=== PATIENT | female | born 1970 | race Caucasian/White ===

== ENCOUNTER → 2019-06-23 10:45 | Outpatient (BNVA) | payer MEDICARE, SELFPAY | PROVIDERS: Family Provider Family Medicine; PCP Family Medicine; Visit Provider Family Medicine | DX: I10 Essential (primary) hypertension (principal); E87.6 Hypokalemia; F41.1 Generalized anxiety disorder; K21.9 Gastro-esophageal reflux disease without esophagitis; E78.5 Hyperlipidemia, unspecified; K58.9 Irritable bowel syndrome, unspecified; E11.65 Type 2 diabetes mellitus with hyperglycemia; K58.0 Irritable bowel syndrome with diarrhea; R25.2 Cramp and spasm; E78.2 Mixed hyperlipidemia; J02.9 Acute pharyngitis, unspecified | CPT/HCPCS: 80053; 80061; 83036; 83735 ==

== ENCOUNTER → 2019-09-22 09:03 | Outpatient (BNVA) | payer MEDICARE, SELFPAY | PROVIDERS: Family Provider Family Medicine; PCP Family Medicine; Visit Provider Family Medicine | DX: E11.65 Type 2 diabetes mellitus with hyperglycemia (principal); E11.9 Type 2 diabetes mellitus without complications; F41.1 Generalized anxiety disorder; M17.12 Unilateral primary osteoarthritis, left knee; I10 Essential (primary) hypertension; E87.6 Hypokalemia; K21.9 Gastro-esophageal reflux disease without esophagitis | CPT/HCPCS: 80048; 83036 ==

== ENCOUNTER → 2020-04-27 11:39 | Outpatient (BNVA) | payer MEDICARE, SELFPAY | PROVIDERS: Family Provider Family Medicine; PCP Family Medicine; Visit Provider Nurse Practitioner Family | DX: M79.675 Pain in left toe(s) (principal) | CPT/HCPCS: 73660 ==

== ENCOUNTER → 2020-05-13 09:31 | Outpatient (BNVA) | payer MEDICARE, SELFPAY | PROVIDERS: Family Provider Family Medicine; PCP Family Medicine; Visit Provider Emergency Medicine | DX: Z20.828 Contact with and (suspected) exposure to other viral communicable diseases (principal); J02.9 Acute pharyngitis, unspecified; R11.0 Nausea | CPT/HCPCS: 87635; 87880 ==

== ENCOUNTER 2020-07-11 14:35 | Emergency (ER) | payer MEDICARE, SELFPAY ==
[2020-07-11 15:17] VITALS: BP 174/114; PULSE 90; RESP 18; TEMP 37.2; O2SAT 96; BMI 50.5
--- NOTE | 2020-07-11 15:23 | W.ED.BACK ---
HPI - Back Pain/Injury General: Chief Complaint: Back Pain/Injury Stated Complaint: back pain Time Seen by Provider: 07/11/20 14:45 Source: patient Mode of arrival: ambulatory Limitations: no limitations History of Present Illness: HPI Narrative: Patient is a 50-year-old female who presents to ED today with a complaint of midline and right lower back pain. Patient tells me she has a history of degenerative disc disease. She often has pain in her lower back and into her right hip. Patient tells me she is usually able to treat this conservatively at home. She states several days ago she had to make a trip to [place] to take her son for medical evaluation. Because of COVID they did not allow visitors and patient states she had to sit in her car for several hours while waiting on him. Patient states since then she has had worsening of her pain. She has been trying 800 mg ibuprofen without relief. MD elicited complaint: back pain Pertinent past history: prior back pain Onset (ago): day(s) Timing: constant Severity: severe Similar Symptoms Previously: Yes Quality: sharp and stabbing Location: lumbar spine and right lower back Radiation: right upper leg Exacerbating factors: movement and walking Relieving factors: none Associated symptoms: Reports no associated symptoms; Deny abdominal pain, dysuria or fever(s) Treatments prior to arrival: NSAIDS (800mg ibuprofen) Work related injury: No Review of Systems Const: Denies: fever(s) Card: Denies: chest pain Resp: Denies: dyspnea GI: Denies: abdominal pain : Denies: flank pain or dysuria Musc: Reports: back pain and joint pain (R hip); Denies: neck pain, extremity pain, extremity swelling or joint swelling Neuro: Denies: numbness in extremities or sensory changes PFS ED PFSH: Medical History (Updated 07/11/20 @ 15:35 by BASIL Mcclellan) CHF (congestive heart failure) Depression TOM (generalized anxiety disorder) Hydroxyzine make her sleepy. GERD (gastroesophageal reflux disease) HTN (hypertension) Hyperlipidemia Hypokalemia Irritable bowel syndrome Nicotine dependence Seasonal allergies Sleep apnea Type 2 diabetes mellitus Surgical History S/P carpal tunnel release Left S/P cholecystectomy S/P hernia repair S/P hysterectomy S/P knee replacement Total left knee replacement Family History Mother Diabetes Heart disease Family/Other Diabetes Maternal Uncle Heart disease Maternal Grandmother Social History Smoking and tobacco status: former smoker Quit status (tobacco): has quit using tobacco Second hand smoke exposure: Yes Alcohol intake: never Desire information about alcohol rehabilitation?: No Desire information about substance/drug rehabilitation?: No History of recent travel: No Female Reproductive History: Spontaneous abortions: No Physical Exam Const: COMMON NORMALS: no acute distress, patient oriented x3, no limitations and alert GENERAL APPEARANCE: cooperative NUTRITIONAL APPEARANCE: obese morbidly obese (BMI >50) ORIENTATION/CONSCIOUSNESS: Yes awake, Yes oriented to person, Yes oriented to place and Yes oriented to time Back/Pelvis: THORACIC SPINE/UPPER BACK: Yes normal to inspection and Yes thoracic ROM normal LUMBAR SPINE/LOWER BACK: Yes lumbar spinal tenderness (lower lumbar ), No paraspinal muscle spasm and Yes straight leg raise positive right PELVIS: Yes no pain with anterior-posterior compression and Yes tenderness over symphysis pubis Extremity: GENERAL: Yes normal exam except as noted Neuro: COMMON NORMALS: patient oriented x3, moves all extremities, no focal motor deficits, no sensory deficits noted and gait normal SENSORIUM/ORIENTATION: Yes alert, Yes oriented to person, Yes oriented to place and Yes oriented to time Skin: COMMON NORMALS: no rashes or lesions noted GENERAL SKIN EXAM: no rashes or lesions noted Course Vital Signs: Vital signs: Vital Signs Temperature 99.0 F 07/11/20 15:17 Pulse Rate 90 07/11/20 15:17 Respiratory Rate 18 07/11/20 15:17 Blood Pressure 174/114 07/11/20 15:17 Pulse Oximetry 96 07/11/20 15:17 MDM - Back Pain/Injury MDM Narrative: Medical decision making narrative: Patient here with acute on chronic lower back and hip pain. Patient reports previously being treated with dexamethasone and states it caused unwanted side effects in regards to severe hyperglycemia. She states she has taken prednisone tapers previously and did okay. Recommend she continue taking the ibuprofen. She is requesting a very small amount of stronger pain medications that she may take for severe pain. She states she has an upcoming appointment with primary care for further management. Discharge Plan Discharge Patient Disposition: Home Clinical Impression: Acute exacerbation of chronic low back pain Degenerative disc disease Qualifiers: Spinal region: lumbosacral Qualified Code(s): M51.37 - Other intervertebral disc degeneration, lumbosacral region Condition: Stable Prescriptions: New prednisone 10 mg tablet 10 mg PO DAILY 6 Days Qty: 20 RF: 0 hydrocodone-acetaminophen 5-325 mg tablet 1 tab PO Q6H PRN (Reason: pain) Qty: 4 RF: 0 Discontinued dexamethasone 2 mg tablet 10 mg PO DAILY 1 Days Qty: 5 RF: 0 No Action turmeric root extract 500 mg capsule 500 mg PO DAILY RF: 0 losartan 100 mg tablet 100 mg PO DAILY 30 Days Qty: 30 RF: 5 chlorthalidone 50 mg tablet 50 mg PO DAILY 30 Days Qty: 30 RF: 5 metoprolol succinate 25 mg tablet extended release 24 hr 25 mg PO DAILY 30 Days Qty: 30 RF: 5 metformin 1,000 mg tablet 1,000 mg PO BID 30 Days Qty: 60 RF: 5 fluoxetine 20 mg capsule 20 mg PO DAILY 30 Days Qty: 30 RF: 5 famotidine 40 mg tablet 40 mg PO BID 30 Days Qty: 60 RF: 5 atorvastatin 40 mg tablet 40 mg PO DAILY 30 Days Qty: 30 RF: 5 tizanidine 2 mg tablet See Rx Instructions PO BID MDD 4 PRN (Reason: muscle spasticity) 30 Days Qty: 60 RF: 1 dicyclomine 10 mg capsule 10 mg PO TID 30 Days Qty: 90 RF: 5 buspirone 5 mg tablet 5 mg PO TID PRN (Reason: anxiety) 30 Days Qty: 90 RF: 1 albuterol sulfate 2.5 mg /3 mL (0.083 %) solution for nebulization 2.5 mg INHALATION Q6H Qty: 150 RF: 0 fluticasone propionate 50 mcg/actuation spray,suspension 1 spray INTRANASAL Q12H Qty: 50 RF: 1 ibuprofen 800 mg tablet 800 mg PO BID PRN (Reason: pain) Qty: 60 RF: 5 acetaminophen-codeine 300-30 mg tablet 1 tab PO Q6H PRN (Reason: pain) Qty: 20 RF: 0 (DME) DME: [facility] See Rx Instructions .ROUTE .MEDSUPPLY Qty: 1 RF: 0 azithromycin 250 mg tablet See Rx Instructions PO .COMPLEX Qty: 6 RF: 0 albuterol sulfate 90 mcg/actuation HFA aerosol inhaler 2 puff inhalation Q6H PRN (Reason: shortness of breath or wheezing) Qty: 8.5 RF: 0 [id number] [Bromfed DM] 2-30-10 mg/5 mL syrup 7.5 ml PO Q6H PRN (Reason: cold symptoms) Qty: 160 RF: 0 ondansetron 4 mg tablet,disintegrating 4 mg PO Q6H PRN (Reason: nausea and vomiting) Qty: 12 RF: 0 potassium chloride [Klor-Con 10] 10 mEq tablet extended release 10 meq PO BID 30 Days Qty: 60 RF: 2 canagliflozin 300 mg tablet 300 mg PO DAILY 30 Days Qty: 30 RF: 5 triamcinolone acetonide 0.025 % ointment 1 applic TOPICAL DAILY Qty: 15 RF: 2 loratadine [Allergy Relief (loratadine)] 10 mg tablet See Rx Instructions .ROUTE .COMPLEX Qty: 30 RF: 1 (DME) Blood Glucose Test Strip See Rx Instructions .ROUTE .MEDSUPPLY Qty: 100 RF: 12 albuterol sulfate 90 mcg/actuation HFA aerosol inhaler 2 puff INHALATION Q6H PRN (Reason: shortness of breath or wheezing) Qty: 8.5 RF: 1 Discharge Orders: Discharge ED (Routine); Ordered 07/11/20 Ordered By: Ondina Pickett Referrals: Abi Carrington MD [Primary Care Provider] - Patient Instructions: Opioid Safety Activity Restrictions/Additional Instructions: [facility] is committed to fighting the nationwide opiate epidemic. We are providing ALL patients with information regarding opiate safety. If you received opiate pain medication during your stay or if you received a prescription for opiate pain medication-please review this handout. If not, you may disregard. Thank you. Coding Level of Care Code ED Architecture Consultant for Jim Freeman
[2020-07-11 15:46] VITALS: PULSE 87; RESP 18; O2SAT 97
== END 2020-07-11 15:47 | disposition home or self-care (01) ==
PROVIDERS: Emergency Provider Physician Assistant; PCP Family Medicine
DX: G89.29 Other chronic pain (principal); M54.5 Low back pain; M51.37 Other intervertebral disc degeneration, lumbosacral region; I11.0 Hypertensive heart disease with heart failure; I50.9 Heart failure, unspecified; E78.5 Hyperlipidemia, unspecified; E11.9 Type 2 diabetes mellitus without complications; Z87.891 Personal history of nicotine dependence
CPT/HCPCS: 99282

== ENCOUNTER → 2021-05-02 09:31 | Outpatient (BNVA) | payer MEDICARE, SELFPAY | PROVIDERS: PCP Family Medicine; Visit Provider Nurse Practitioner Family | DX: Z20.822 Contact with and (suspected) exposure to COVID-19 (principal) | CPT/HCPCS: 87635 ==

== ENCOUNTER → 2021-11-02 09:19 | Outpatient (BNVA) | payer MEDICARE, SELFPAY | PROVIDERS: PCP Family Medicine; Visit Provider Emergency Medicine | DX: R68.89 Other general symptoms and signs (principal); J98.8 Other specified respiratory disorders; B97.89 Other viral agents as the cause of diseases classified elsewhere; Z20.822 Contact with and (suspected) exposure to COVID-19 | CPT/HCPCS: 87635 ==

== ENCOUNTER → 2022-09-01 11:00 | Outpatient (BNVA) | payer MEDICARE, SELFPAY | PROVIDERS: Visit Provider Podiatrist Foot & Ankle Surgery | DX: E11.65 Type 2 diabetes mellitus with hyperglycemia (principal); G62.9 Polyneuropathy, unspecified; M54.16 Radiculopathy, lumbar region; M20.11 Hallux valgus (acquired), right foot; E11.42 Type 2 diabetes mellitus with diabetic polyneuropathy; Z79.84 Long term (current) use of oral hypoglycemic drugs; Z79.4 Long term (current) use of insulin | CPT/HCPCS: 99204 ==

== ENCOUNTER → 2022-09-07 15:34 | Outpatient (BNVA) | payer MEDICARE, SELFPAY | PROVIDERS: Visit Provider Physician Assistant | DX: M54.50 Low back pain, unspecified (principal); M54.16 Radiculopathy, lumbar region; G89.29 Other chronic pain; E66.01 Morbid (severe) obesity due to excess calories | CPT/HCPCS: 72110; 99204 ==

== ENCOUNTER 2022-09-14 06:00 | Outpatient (RCR) | payer MEDICARE, SELFPAY | END 2022-10-13 23:59 | disposition home or self-care (01) | LOC: MPT 06:00 | PROVIDERS: Visit Provider Physician Assistant | DX: M54.50 Low back pain, unspecified (principal) | CPT/HCPCS: 97110; 97140; 97162; G0283 ==

== ENCOUNTER 2022-10-14 06:00 | Outpatient (RCR) | payer MEDICARE, SELFPAY | END 2022-11-13 23:59 | disposition home or self-care (01) | LOC: MPT 06:00 | PROVIDERS: Visit Provider Physician Assistant | DX: M54.50 Low back pain, unspecified (principal) | CPT/HCPCS: 97110; 97140; G0283 ==

== ENCOUNTER → 2022-10-19 13:40 | Outpatient (BNVA) | payer MEDICARE, SELFPAY | PROVIDERS: Visit Provider Physician Assistant | DX: E66.01 Morbid (severe) obesity due to excess calories (principal); M54.50 Low back pain, unspecified; G89.29 Other chronic pain; M54.16 Radiculopathy, lumbar region | CPT/HCPCS: 99213 ==

== ENCOUNTER 2022-11-01 07:39 | Outpatient (CLI) | payer MEDICARE, SELFPAY ==
--- NOTE | 2022-11-01 08:00 | MR_ITS ---
WS: [id number] MRI LUMBAR SPINE NONCONTRAST TECHNIQUE: Sagittal T1, T2 and STIR imaging. Axial T1 and T2 imaging. CLINICAL INFORMATION: pain COMPARISON: None. FINDINGS: Mild lumbar curve. No acute compression. Mild annular bulging L3-L4 with small annular fissure. L1-L2: Mild facet arthropathy. Spinal canal and foramen are patent. L2-L3: Mild LEFT and no significant RIGHT foraminal narrowing. Moderate facet arthropathy. L3-L4: Mild annular bulging with a small annular fissure. Slight effacement of ventral thecal sac. Sl ight narrowing of the subarticular recess. Spinal canal and foramen are patent. Moderate facet arthro vale. L4-L5: Mild annular bulging with narrowing of the LEFT greater than RIGHT subarticular recess. Slight effacement of ventral thecal sac. Spinal canal and foramen are patent. Mild to moderate facet arthro vale. L5-S1: No significant disc bulging. Moderate facet arthropathy. Spinal canal and foramen are patent. Visualized pelvic bony structures: Normal. Paravertebral soft tissues: Normal. MR/MR lumbar spine wo con* [id number] IMPRESSION: 1. Mild lumbar curve. No acute compression. No high-grade central canal stenos is. 2. Mild annular bulging L3-L4 with small annular fissure. Slight narrowing of the subarticular recess bilaterally. 3. Mild annular bulging L4-L5 with slight effacement of ventral thecal sac. 4. Moderate facet arthropathy L2-L3 L3-L4 and L4-L5.
== END 2022-11-01 07:40 | disposition home or self-care (01) ==
PROVIDERS: Visit Provider Physician Assistant
DX: G89.29 Other chronic pain (principal); M54.50 Low back pain, unspecified
CPT/HCPCS: 72148

== ENCOUNTER 2022-11-05 16:59 | Emergency (ER) | payer MEDICARE, SELFPAY ==
--- NOTE | 2022-11-05 18:02 | XRR_ITS ---
PROCEDURE INFORMATION: Exam: XR Left Shoulder Exam date and time: 11/05/2022 6:20 PM Age: 52 years old Clinical indication: Pain; Shoulder; Left; Additional info: Pain, no trauma TECHNIQUE: Imaging protocol: Radiologic exam of the left shoulder. Views: 2 or more views. COMPARISON: No relevant prior studies available. FINDINGS: Bones/joints: Mild left acromioclavicular arthropathy. Soft tissues: Normal. XR/XR shoulder LT min 2V* [id number] IMPRESSION: Mild left acromioclavicular arthropathy.
[2022-11-05 18:34] VITALS: BP 146/72; PULSE 104; RESP 16; TEMP 37.1; O2SAT 95; BMI 50.2
[2022-11-05 19:29] VITALS: PULSE 68
--- NOTE | 2022-11-05 19:39 | W.ED.EXTPRO ---
HPI - Extremity Problem General: Chief complaint: Extremity Injury, Upper Stated complaint: Lft Shoulder Pain Time Seen by Provider: 11/05/22 19:20 Source: patient Mode of arrival: ambulatory Limitations: no limitations History of Present Illness: 52-year-old female states been left shoulder pain for months. States over the last week it is worsened states much worse with palpation and movement of the arm. She states she has seen orthopedist for this before who recommended physical therapy she denies any recent injuries. Rates her pain a 6 out of 10 currently Associated symptoms: Deny chest pain, fever(s) or rash Review of Systems Const: Denies: fever(s), chills, body aches or change in appetite ENMT: Denies: throat pain or dental pain Card: Denies: chest pain Resp: Denies: dyspnea GI: Denies: abdominal pain Musc: Reports: extremity pain; Denies: neck pain or back pain Skin/Breast: Denies: rash Neuro: Denies: headache(s) PFSH ED PFSH: Medical History CHF (congestive heart failure) Depression TOM (generalized anxiety disorder) Hydroxyzine make her sleepy. GERD (gastroesophageal reflux disease) HTN (hypertension) Hyperlipidemia Hypokalemia Irritable bowel syndrome Nicotine dependence Seasonal allergies Sleep apnea Type 2 diabetes mellitus Surgical History S/P carpal tunnel release Left S/P cholecystectomy S/P hernia repair S/P hysterectomy S/P knee replacement Total left knee replacement Family History Mother Diabetes Heart disease Family/Other Diabetes Maternal Uncle Heart disease Maternal Grandmother Social History Smoking and tobacco status: former smoker Quit status (tobacco): has quit using tobacco Second hand smoke exposure: Yes Alcohol intake: never Desire information about alcohol rehabilitation?: No Substance/Drug Use: never Desire information about substance/drug rehabilitation?: No Female Reproductive History: Spontaneous abortions: No Physical Exam Const: COMMON NORMALS: no acute distress, average body habitus and patient oriented x3 HENMT: COMMON NORMALS: normocephalic and atraumatic HEAD & SCALP: normocephalic and atraumatic Eye: COMMON NORMALS: conjunctivae normal CONJUNCTIVA: Yes conjunctivae normal Neck/C-Spine: COMMON NORMALS: supple Chest: COMMONS NORMALS: normal inspection of the chest Resp: COMMON NORMALS: normal respiratory effort Extremity: NARRATIVE EXTREMITY EXAM: Pain with range of motion to left shoulder distal pulses sensation intact Neuro: COMMON NORMALS: patient oriented x3 Psych: COMMON NORMALS: mental status grossly normal Skin: COMMON NORMALS: no rashes or lesions noted GENERAL SKIN EXAM: no rashes or lesions noted Course Vital Signs: Vital signs: Vital Signs Temperature 98.8 F 11/05/22 18:34 Pulse Rate 68 11/05/22 19:29 Respiratory Rate 16 11/05/22 18:34 Blood Pressure 146/72 11/05/22 18:34 Pulse Oximetry 95 11/05/22 18:34 Oxygen Delivery Me thod Room Air 11/05/22 18:34 MDM - Extremity (Nontraumatic) Medical Decision Making Patient presents with left shoulder pains been going on for months her x-ray here is normal she is to follow-up with orthopedics she states that she is actually seen Dr. Escobedo for this he and he is going to try step with PT she is stable for discharge at this time Medical Records I reviewed the patient's medical records. Lab Data Radiology Impressions Shoulder X-Ray 11/05/22 18:02 IMPRESSION: Mild left acromioclavicular arthropathy. Discharge Plan Discharge Patient Disposition: Home Clinical Impression: Chronic left shoulder pain Condition: Stable Prescriptions: New Naprosyn 500 mg tablet 500 mg PO BID PRN (Reason: pain) Qty: 20 0RF No Action losartan 100 mg tablet 100 mg PO DAILY 30 Days Qty: 30 5RF chlorthalidone 50 mg tablet 50 mg PO DAILY 30 Days Qty: 30 5RF metoprolol succinate 25 mg tablet extended release 24 hr 25 mg PO DAILY 30 Days Qty: 30 5RF fluoxetine 20 mg capsule 20 mg PO DAILY 30 Days Qty: 30 5RF famotidine 40 mg tablet 40 mg PO BID 30 Days Qty: 60 5RF dicyclomine 10 mg capsule 10 mg PO TID 30 Days Qty: 90 5RF buspirone 5 mg tablet 5 mg PO TID PRN (Reason: anxiety) 30 Days Qty: 90 1RF methocarbamol 750 mg tablet 750 mg PO TID 5 Days Qty: 15 0RF meloxicam 15 mg tablet 15 mg PO DAILY Lantus Solostar U-100 Insulin 100 unit/mL (3 mL) insulin pen 45 unit SUBCUT DAILY Iron 100 Plus [id number] lo-ir-wtv-mg tablet 1 tab PO DAILY ketoconazole 2 % shampoo 1 applic topical Q14D metronidazole 0.75 % gel 1 applic topical DAILY alpha lipoic acid 50 mg capsule 50 mg PO DAILY Ozempic 1 mg/dose (2 mg/1.5 mL) pen injector SUBCUT .weekly albuterol sulfate 90 mcg/actuation HFA aerosol inhaler 2 puff inhalation Q6H PRN (Reason: shortness of breath or wheezing) Qty: 8.5 0RF [id number] [Bromfed DM] 2-30-10 mg/5 mL syrup 7.5 ml PO Q6H PRN (Reason: cold symptoms) Qty: 160 0RF doxycycline hyclate 100 mg tablet 100 mg PO BID 7 Days Qty: 14 0RF potassium chloride [Klor-Con 10] 10 mEq tablet extended release 10 meq PO BID 30 Days Qty: 60 2RF Rx Instructions: dose increase loratadine [Allergy Relief (loratadine)] 10 mg tablet See Rx Instructions .ROUTE .COMPLEX Qty: 30 1RF Dose Instruction: TAKE ONE TABLET BY MOUTH DAILY AT BEDTIME Rx Instructions: TAKE ONE TABLET BY MOUTH DAILY AT BEDTIME (DME) Blood Glucose Test Strip See Rx Instructions .ROUTE .MEDSUPPLY Qty: 100 12RF Rx Instructions: As directed; one blood glucose test strip one time daily metformin 1,000 mg tablet 1,000 mg PO BID 30 Days Qty: 60 0RF diazepam [Valium] 5 mg tablet 5 mg PO ONCE 1 Days Qty: 1 0RF Discharge Orders: Discharge ED (Routine); Ordered 11/05/22 Ordered By: Michel Callahan Referrals: Shane Escobedo DO [Physician] - 1-3 days Discharge Diet: Advance as tolerated Discharge Activity: Resume usual activity Patient Instructions: Shoulder Pain (ED) Coding Level of Care Code ED Special Needs Child Caregiver for Jim Freeman
[2022-11-05] MEDS: HYDROcodone-acetaminophen 5-325 mg Tablet 1 TAB PO (19:47)
[2022-11-05 19:48] VITALS: BP 130/81; PULSE 98; RESP 18; O2SAT 95
--- NOTE | 2022-11-08 09:29 | DCPLANNER ---
mission manager called patient due to no primary care physician - no answer at this time.
== END 2022-11-05 19:49 | disposition home or self-care (01) ==
PROVIDERS: Emergency Provider Emergency Medicine
DX: G89.29 Other chronic pain (principal); M25.512 Pain in left shoulder; Z79.4 Long term (current) use of insulin; Z79.84 Long term (current) use of oral hypoglycemic drugs; Z87.891 Personal history of nicotine dependence; I11.0 Hypertensive heart disease with heart failure; I50.9 Heart failure, unspecified; E78.5 Hyperlipidemia, unspecified; E11.9 Type 2 diabetes mellitus without complications
CPT/HCPCS: 73030; 99283

== ENCOUNTER → 2022-11-10 12:10 | Outpatient (BNVA) | payer MEDICARE, SELFPAY | PROVIDERS: Visit Provider Emergency Medicine | DX: J02.0 Streptococcal pharyngitis (principal) | CPT/HCPCS: 87880 ==

== ENCOUNTER 2022-11-20 06:00 | Outpatient (RCR) | payer MEDICARE, SELFPAY | END 2022-12-14 23:59 | disposition home or self-care (01) | LOC: MPT 06:00 | PROVIDERS: Visit Provider Nurse Practitioner Family | DX: M25.512 Pain in left shoulder (principal) | CPT/HCPCS: 97110; 97140; 97162; G0283 ==

== ENCOUNTER → 2022-11-28 10:48 | Outpatient (BNVA) | payer MEDICARE, SELFPAY | PROVIDERS: Visit Provider Physician Assistant | DX: E66.01 Morbid (severe) obesity due to excess calories (principal); M47.816 Spondylosis without myelopathy or radiculopathy, lumbar region; Z68.43 Body mass index [BMI] 50.0-59.9, adult | CPT/HCPCS: 99214 ==

== ENCOUNTER 2023-09-28 16:03 | Emergency (ER) | payer MEDICARE, SELFPAY ==
[2023-09-28 16:35] VITALS: BP 154/83; PULSE 90; RESP 18; TEMP 36.8; O2SAT 97; BMI 55.9
--- NOTE | 2023-09-28 17:33 | XRR_ITS ---
PROCEDURE INFORMATION: Exam: XR Right Knee Exam date and time: 09/28/2023 6:01 PM Age: 53 years old Clinical indication: Injury or trauma; Fall; Sprain or strain; Patella or knee; Right; Patient HX: RT medial knee pain post twisting injury TECHNIQUE: Imaging protocol: Radiologic exam of the right knee. Views: 3 views. COMPARISON: CR XR foot RT min 3V* [id number] 10/19/2018 9:17 PM FINDINGS: Bones/joints: No acute fracture or dislocation. Tiny medial are compartment osteophytes. No joint effusion. Soft tissues: Unremarkable. XR/XR knee RT 3V* [id number] IMPRESSION: No acute fracture or dislocation.
[2023-09-28 17:34] VITALS: BP 162/85; PULSE 88; TEMP 36.9; O2SAT 96
--- NOTE | 2023-09-28 18:38 | ED_ITS ---
HPI - Extremity Problem General: Chief complaint: Extremity Problem,Nontraumatic Stated complaint: right knee pain Time Seen by Provider: 09/28/23 17:47 History of Present Illness: 53-year-old female with a history of mor bid obesity type 2 diabetes mellitus anxiety, hypertension, GERD and depression who presents to the emergency room with right knee pain. She said she was lifting or twisting and felt a pop in her knee and she has had pain since. She has quite a bit of swelling in her knee. There is been some bruising on the medial side. She is neurovascularly intact. Review of Systems Narrative: Constitutional symptoms: Negative except as documented in HPI. Skin symptoms: Negative except as documented in HPI. Eye symptoms: Negative except as documented in HPI. ENMT symptoms: Negative except as documented in HPI. Respiratory symptoms: Negative except as documented in HPI. Cardiovascular symptoms: Negative except as documented in HPI. Gastrointestinal symptoms: Negative except as documented in HPI. Genitourinary symptoms: Negative except as documented in HPI. Musculoskeletal symptoms: Negative except as documented in HPI. Neurologic symptoms: Negative except as documented in HPI. Psychiatric symptoms: Negative except as documented in HPI. Endocrine symptoms: Negative except as documented in HPI. [facility] ED PFSH: Medical History (Updated 09/28/23 @ 18:34 by Katherine Porter MD) Seasonal allergies Hypokalemia Irritable bowel syndrome Type 2 diabetes mellitus Nicotine dependence TOM (generalized anxiety disorder) Hydroxyzine make her sleepy. HTN (hypertension) GERD (gastroesophageal reflux disease) Depression Sleep apnea Hyperlipidemia CHF (congestive heart failure) Surgical History S/P hernia repair S/P knee replacement Total left knee replacement S/P carpal tunnel release Left S/P cholecystectomy S/P hysterectomy Family History Mother Diabetes Heart disease Family/Other Diabetes Maternal Uncle Heart disease Maternal Grandmother Social History Smoking and tobacco/nicotine status: former use of tobacco/nicotine Quit status (tobacco/nicotine): has quit using Second hand smoke exposure: Yes Alcohol intake: never Substance/Drug Use: never Female Reproductive History: Spontaneous abortions: No Physical Exam Narrative: EXAM NARRATIVE: General: Alert, no acute distress. Skin: warm and dry Head: Normocephalic Neck: Trachea midline Eye: Extraocular movements are intact. Ears, nose, mouth and throat: Oral mucosa moist Respiratory: Respirations are non-labored Musculoskeletal: Patient does appear to have some swelling of her right knee. There is some bruising medially. No obvious deformities. Neurovascularly intact. Neurological: Alert and oriented, No focal neurological deficit observed. Psychiatric: Cooperative, appropriate mood & affect. Course Vital Signs: Vital signs: Vital Signs Temperature 98.4 F 09/28/23 17:34 Pulse Rate 88 09/28/23 17:34 Respiratory Rate 18 09/28/23 16:35 Blood Pressure 162/85 09/28/23 17:34 Pulse Oximetry 96 09/28/23 17:34 Oxygen Delivery Me thod Room Air 09/28/23 17:34 MDM - Extremity (Nontraumatic) Medical Decision Making X-ray of the right knee: No obvious deformity. No fractures. This was reviewed and interpreted by myself the emergency room physician. Assessment and plan: Internal knee derangement - Discharged home - Discussed plan with patient. Answered any questions. - Evaluation and treatment of this problem were appropriate in the emergency setting. XR interpretation done by ED provider, pending radiology final review Discharge Plan Discharge Patient Disposition: Home Clinical Impression: Internal derangement of knee joint Qualifiers: Laterality: right Qualified Code(s): M23.91 - Unspecified internal derangement of right knee Effusion of knee Qualifiers: Laterality: right Qualified Code(s): M25.461 - Effusion, right knee Condition: Stable Prescriptions: New hydrocodone-acetaminophen 5-325 mg tablet 1 tab PO Q6H PRN (Reason: pain) Qty: 20 0RF diclofenac sodium 50 mg tablet,delayed release (DR/EC) 50 mg PO Q12H Qty: 20 0RF Miralax 17 gram/dose powder 17 g PO DAILY Qty: 510 0RF Rx Instructions: Take 1 scoop daily while taking pain medications. No Action losartan 100 mg tablet 100 mg PO DAILY 30 Days Qty: 30 5RF chlorthalidone 50 mg tablet 50 mg PO DAILY 30 Days Qty: 30 5RF metoprolol succinate 25 mg tablet extended release 24 hr 25 mg PO DAILY 30 Days Qty: 30 5RF fluoxetine 20 mg capsule 20 mg PO DAILY 30 Days Qty: 30 5RF famotidine 40 mg tablet 40 mg PO BID 30 Days Qty: 60 5RF dicyclomine 10 mg capsule 10 mg PO TID 30 Days Qty: 90 5RF buspirone 5 mg tablet 5 mg PO TID PRN (Reason: anxiety) 30 Days Qty: 90 1RF meloxicam 15 mg tablet 15 mg PO DAILY Lantus Solostar U-100 Insulin 100 unit/mL (3 mL) insulin pen 45 unit SUBCUT DAILY Iron 100 Plus [id number] fm-vo-aef-mg tablet 1 tab PO DAILY ketoconazole 2 % shampoo 1 applic topical Q14D metronidazole 0.75 % gel 1 applic topical DAILY alpha lipoic acid 50 mg capsule 50 mg PO DAILY Mounjaro 2.5 mg/0.5 mL pen injector SUBCUT hydrocodone-acetaminophen 7.5-325 mg tablet 1 tab PO Q6H PRN (Reason: pain) 5 Days Qty: 20 0RF prednisone 20 mg tablet 20 mg PO DAILY 5 Days Qty: 5 0RF potassium chloride [Klor-Con 10] 10 mEq tablet extended release 10 meq PO BID 30 Days Qty: 60 2RF Rx Instructions: dose increase loratadine [Allergy Relief (loratadine)] 10 mg tablet See Rx Instructions .ROUTE .COMPLEX Qty: 30 1RF Dose Instruction: TAKE ONE TABLET BY MOUTH DAILY AT BEDTIME Rx Instructions: TAKE ONE TABLET BY MOUTH DAILY AT BEDTIME (DME) Blood Glucose Test Strip See Rx Instructions .ROUTE .MEDSUPPLY Qty: 100 12RF Rx Instructions: As directed; one blood glucose test strip one time daily metformin 1,000 mg tablet 1,000 mg PO BID 30 Days Qty: 60 0RF Discharge Orders: Discharge ED (Routine); Ordered 09/28/23 Ordered By: Katherine Porter Referrals: Shane Escobedo DO [Physician] - (Please call for an appointment with orthopedics in the next few days. Either Dr. Escobedo or Dr. Kim.) Danay King MD [Physician] - Discharge Diet: Usual diet Discharge Activity: Increase activity as tolerated Patient Instructions: Knee Pain (ED), Opioid Safety Activity Restrictions/Additional Instructions: Thank you for choosing [facility] for your healthcare needs today. Please realize this is an emergency room and that we are providing you with a medical screening exam and this may not be complete and all inclusive of all the testing and or work up that you may need to determine your ailment or severity of your illness. You have been screened and evaluated and felt safe for discharge. Health conditions do change or evolve sometimes and as such it is important that you follow up with your Primary Doctor to be re checked, 3-5 days is a general good time frame for follow up. You are always welcome to return to the ED for re assessment if your symptoms are worsening or you have new concerns Coding Level of Care Code ED Wrapper Stemmer Hand for Jim Freeman
[2023-09-28] MEDS: HYDROcodone-acetaminophen 10-325 mg Tablet 1 TAB PO (18:43)
[2023-09-28 18:52] VITALS: BP 154/81; PULSE 82; RESP 16; TEMP 36.9; O2SAT 97
== END 2023-09-28 18:53 | disposition home or self-care (01) ==
PROVIDERS: Emergency Provider Emergency Medicine
DX: M23.91 Unspecified internal derangement of right knee (principal); M25.461 Effusion, right knee; Z87.891 Personal history of nicotine dependence; E11.9 Type 2 diabetes mellitus without complications; I11.0 Hypertensive heart disease with heart failure; I50.9 Heart failure, unspecified; E78.5 Hyperlipidemia, unspecified
CPT/HCPCS: 73562; 99283

== ENCOUNTER → 2023-10-29 13:37 | Outpatient (BNVA) | payer MEDICARE, SELFPAY | PROVIDERS: PCP Family Medicine; Visit Provider Nurse Practitioner | DX: M25.561 Pain in right knee (principal); M23.51 Chronic instability of knee, right knee | CPT/HCPCS: 73560; 73565; 99204 ==

== ENCOUNTER 2024-10-27 12:38 | Emergency (ER) | payer MEDICARE, SELFPAY ==
[2024-10-27 12:42] VITALS: BP 151/88; PULSE 80; RESP 16; TEMP 36.6; O2SAT 100; BMI 44.0
--- OUTSIDE RECORDS SUMMARY | 2024-10-27 12:44 | XMS_ITS | Encounter Summary ---
Author Organization [facility] Address [address] [place] [address] Care Team Providers Care Dyehouse Worker Name Role Phone Unavailable Primary Care Provider Unavailabl e Encounter Details Date Type Department Care Team (Latest Contact Info) Description 06/24/1998 Outpatient Historical [facility] Medicine [address] 16[place] [phone] Ai Carreon MD [address] [place] [address] Supervision of other normal (Primary Dx) Social History Tobacco Use Types Packs/Day Years Used Date Smoking Tobacco: Never Assessed Comments Unknown Sex and Gender Information Value Date Recorded Sex Assigned at Not on file 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
--- OUTSIDE RECORDS SUMMARY | 2024-10-27 12:44 | XMS_ITS | Encounter Summary ---
Author Organization [facility] Address [address] [place] [address] Care Team Providers Care Firefighter Name Role Phone Unavailable Primary Care Provider Unavailabl e Encounter Details Date Type Department Care Team (Latest Contact Info) Description 05/20/[address] 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
--- OUTSIDE RECORDS SUMMARY | 2024-10-27 12:44 | XMS_ITS | Encounter Summary ---
Author Organization [facility] Address [address] [place] [address] Care Team Providers Care Construction Project Manager Name Role Phone Unavailable Primary Care Provider Unavailabl e Encounter Details Date Type Department Care Team (Latest Contact Info) Description 09/27/2015 Ancillary Orders [facility] Pre-Registration [place] CALL TO MAKE APPOINTMENT ONLY [address] [place] [address] Abdirahman Palacio MD [address] [place] [address] Lumbar back pain with radiculopathy affecting right lower extremity (Primary Dx) Social History Tobacco Use Types Packs/Day Years Used Date Smoking Tobacco: Never Assessed Comments Unknown Sex and Gender Information Value Date Recorded Sex Assigned at Not on file 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
--- OUTSIDE RECORDS SUMMARY | 2024-10-27 12:44 | XMS_ITS | Encounter Summary ---
Author Organization [facility] Address [address] [place] [address] Care Team Providers Care Soft Sugar Operator Head Name Role Phone Unavailable Primary Care Provider Unavailabl e Encounter Details Date Type Department Care Team (Latest Contact Info) Description 12/24/[address] 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
--- OUTSIDE RECORDS SUMMARY | 2024-10-27 12:44 | XMS_ITS | Encounter Summary ---
Author Organization [facility] Address [address] [place] [address] Care Team Providers Care Binding End Stitcher Name Role Phone Unavailable Primary Care Provider Unavailabl e Encounter Details Date Type Department Care Team (Latest Contact Info) Description 04/07/1999 Outpatient Historical [facility] Medicine [address] [phone] Ai Carreon MD [address] [place] [address] Other and unspecified noninfectious gastroenteritis and colitis(558.9) (Primary Dx) Social History Tobacco Use Types Packs/Day Years Used Date Smoking Tobacco: Never Assessed Comments Unknown Sex and Gender Information Value Date Recorded Sex Assigned at Not on file 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
--- OUTSIDE RECORDS SUMMARY | 2024-10-27 12:44 | XMS_ITS | Encounter Summary ---
Author Organization [facility] Address [address] [place] [address] Care Team Providers Care Web Site Designer Name Role Phone Unavailable Primary Care Provider Unavailabl e Encounter Details Date Type Department Care Team (Latest Contact Info) Description 06/18/2001 Outpatient Historical [facility] Medicine [address] 16[place] [address] Jovany Ross MD [address] [address] ACUTE URI NOS (Primary Dx) Social History Tobacco Use Types Packs/Day Years Used Date Smoking Tobacco: Never Assessed Comments Unknown Sex and Gender Information Value Date Recorded Sex Assigned at Not on file Legal Sex Female 5:26 AM GUIDE TRAVEL Gender Identity Not on file Sexual Orientation Not on file documented as of this encounter Plan of Treatment Not on file documented as of this encounter Visit Diagnoses Diagnosis Acute upper respiratory infections of unspecified site- Primary documented in this encounter
--- OUTSIDE RECORDS SUMMARY | 2024-10-27 12:44 | XMS_ITS | Encounter Summary ---
Author Organization [facility] Address [address] [place] [address] Care Team Providers Care Shingle Grader Name Role Phone Unavailable Primary Care Provider Unavailabl e Encounter Details Date Type Department Care Team (Latest Contact Info) Description 01/25/2000 Outpatient Historical [facility] Medicine [address] 16[place] [address] Jovany Ross MD [address] [address] Allergic rhinitis, cause unspecified (Primary Dx); Abnormal weight gain Social History Tobacco Use Types Packs/Day Years Used Date Smoking Tobacco: Never Assessed Comments Unknown Sex and Gender Information Value Date Recorded Sex Assigned at Not on file 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
--- OUTSIDE RECORDS SUMMARY | 2024-10-27 12:44 | XMS_ITS | Encounter Summary ---
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
--- OUTSIDE RECORDS SUMMARY | 2024-10-27 12:44 | XMS_ITS | Encounter Summary ---
Author Organization [facility] Address [address] [place] [address] Care Team Providers Care Fryline Attendant Name Role Phone Unavailable Primary Care Provider Unavailabl e Encounter Details Date Type Department Care Team (Latest Contact Info) Description 07/15/1998 Outpatient Historical [facility] Medicine [address] [phone] Jovany Ross MD [address], [place] [address] Supervision of other normal (Primary Dx) Social History Tobacco Use Types Packs/Day Years Used Date Smoking Tobacco: Never Assessed Comments Unknown Sex and Gender Information Value Date Recorded Sex Assigned at Not on file Legal Sex Female 5:26 AM MEDICAL STAFF CREDENTIALING COORDINATOR Gender Identity Not on file Sexual Orientation Not on file documented as of this encounter Plan of Treatment Not on file documented as of this encounter Visit Diagnoses Diagnosis Supervision of other normal - Primary documented in this encounter
--- OUTSIDE RECORDS SUMMARY | 2024-10-27 12:44 | XMS_ITS | Encounter Summary ---
Author Organization [facility] Address [address] [place] [address] Care Team Providers Care Facer Operator Name Role Phone Unavailable Primary Care Provider Unavailabl e Encounter Details Date Type Department Care Team (Latest Contact Info) Description 09/11/2000 Outpatient Historical [facility] Medicine [address] [phone] Ai Carreon MD [address] [place] [phone] Nonsuppurative otitis media, not specified as acute or chronic (Primary Dx) Social History Tobacco Use Types Packs/Day Years Used Date Smoking Tobacco: Never Assessed Comments Unknown Sex and Gender Information Value Date Recorded Sex Assigned at Not on file Legal Sex Female 5:26 AM MEDICAL DIR Gender Identity Not on file Sexual Orientation Not on file documented as of this encounter Plan of Treatment Not on file documented as of this encounter Visit Diagnoses Diagnosis Nonsuppurative otitis media, not specified as acute or chronic- Primary documented in this encounter
--- OUTSIDE RECORDS SUMMARY | 2024-10-27 12:44 | XMS_ITS | Encounter Summary ---
Author Organization [facility] Address [address] [place] [address] Care Team Providers Care Senior Licensing Manager Name Role Phone Unavailable Primary Care Provider Unavailabl e Encounter Details Date Type Department Care Team (Latest Contact Info) Description 07/29/1998 Outpatient Historical [facility] Medicine [address] [phone] Ai Carreon MD [address] [place] [address] Supervision of other normal (Primary Dx) Social History Tobacco Use Types Packs/Day Years Used Date Smoking Tobacco: Never Assessed Comments Unknown Sex and Gender Information Value Date Recorded Sex Assigned at Not on file Legal Sex Female 5:26 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
--- OUTSIDE RECORDS SUMMARY | 2024-10-27 12:44 | XMS_ITS | Encounter Summary ---
Author Organization [facility] Address [address] [place] [address] Care Team Providers Care Seed Core Operator Name Role Phone Unavailable Primary Care Provider Unavailabl e Encounter Details Date Type Department Care Team (Latest Contact Info) Description 08/14/2001 Outpatient Historical [facility] Medicine [address] [address] Jovany Ross MD [address] [address] ABDOMINAL PAIN UNSPEC SITE (Primary Dx) Social History Tobacco Use Types Packs/Day Years Used Date Smoking Tobacco: Never Assessed Comments Unknown Sex and Gender Information Value Date Recorded Sex Assigned at Not on file 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
--- OUTSIDE RECORDS SUMMARY | 2024-10-27 12:44 | XMS_ITS | Clinical Summary ---
Author Organization [facility] Address [address] Keita: Epic Prelude ADT JULIEN QUINONES [address] Care Team Providers Care Php Website Developer Name Role Phone Unavailable Primary Care Provider Unavailabl e Medications FLUoxetine (PROzac) 10 mg tablet Take 10 mg by mouth daily. 11/21/2016 Active FLUoxetine (PROzac) 40 mg capsule Take 40 mg by mouth daily. 11/21/2016 Active potassium chloride (KLOR-CON) 10 mEq Extended Release tablet Take 10 mEq by mouth. 11/21/2016 Active metoprolol tartrate (LOPRESSOR) 25 mg tablet Take 25 mg by mouth 2 times daily. 11/21/2016 Active montelukast (SINGULAIR) 10 mg tablet Take 10 mg by mouth daily at bedtime. 11/21/2016 Active hydrOXYzine pamoate (VISTARIL) 25 mg capsule Take 25 mg by mouth 3 times daily as needed for Itching. 11/21/2016 Active metOLazone (ZAROXOLYN) 5 mg tablet Take 5 mg by mouth daily. 11/21/2016 Active raNITIdine (ZANTAC) 300 mg tablet Take 300 mg by mouth daily at bedtime. 11/21/2016 Active Immunizations Immunization Administration Dates Next Due (M-M-R II/PRIORIX)(12 MO UP) MEASLES, MUMPS AND RUBELLA VIRUS VACCINE, 0.5 ML IM/SUBCUT 10/05/1998 Social History Tobacco Use Types Packs/Day Years Used Date Smoking Tobacco: Never Assessed Comments Unknown Sex and Gender Information Value Date Recorded Sex Assigned at Not on file Legal Sex Female 4:46 AM MARKETING AUTOMATION SPECIALIST Gender Identity Not on file Sexual Orientation Not on file Last Filed Vital Signs Vital Sign Reading Time Taken Comments Blood Pressure 120/84 11/21/2016 11:48 AM CDT Pulse 96 11/21/2016 11:48 AM CDT Temperature 36.8 C (98.3 F) 11/21/2016 11:48 AM CDT Respiratory Rate 15 11/21/2016 11:48 AM CDT Oxygen Saturation - - Inhaled Oxygen Concentration - - Weight 164.7 kg (363 lb) 11/21/2016 11:48 AM CDT Height 177.8 cm (5' 10 ) 11/21/2016 11:48 AM CDT Body Mass Index 52.09 11/21/2016 11:48 AM CDT Plan of Treatment Health Maintenance Due Date Last Done Comments DTAP/TDAP/TD VACCINES (1 - Tdap) 1990 HEPATITIS B VACCINES (1 of 3 - 19+ 3-dose series) 01/14 HPV/Cotest (21-29) 01/25/1992 CERVICAL CANCER SCREENING 2001 HPV/Cotest (30-65) 2001 PAP SMEAR 2001 BREAST CANCER SCREENING 2011 COLORECTAL SCREENING 01/25/2016 Colorectal Cancer Screening 01/25/2016 FIT-DNA Q 3 years 01/25/2016 FIT/FOBT Q 1 year 01/25/2016 Flex Sig/CT Colonography Q 5 years 01/25/2016 ZOSTER VACCINE (1 of 2) 2021 INFLUENZA VACCINE (#1) 2024
--- OUTSIDE RECORDS SUMMARY | 2024-10-27 12:44 | XMS_ITS | Encounter Summary ---
Author Organization [facility] Address [address] [place] [address] Care Team Providers Care Golf Course Patroller Name Role Phone Unavailable Primary Care Provider Unavailabl e Encounter Details Date Type Department Care Team (Latest Contact Info) Description 08/11/1998 Outpatient Historical [facility] Medicine [address] [phone] Jovany Ross MD [address] [address] Supervision of other normal (Primary Dx); Cystitis, unspecified Social History Tobacco Use Types Packs/Day Years Used Date Smoking Tobacco: Never Assessed Comments Unknown Sex and Gender Information Value Date Recorded Sex Assigned at Not on file Legal Sex Female 5:26 AM 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
--- OUTSIDE RECORDS SUMMARY | 2024-10-27 12:44 | XMS_ITS | Encounter Summary ---
Author Organization [facility] Address [address] [place] [address] Care Team Providers Care Graduate School Dean Name Role Phone Unavailable Primary Care Provider Unavailabl e Encounter Details Date Type Department Care Team (Latest Contact Info) Description 02/18/2001 Outpatient Historical [address] [phone] Deja Hoyos MD [address] [place] [address] COUGH (Primary Dx); ACUTE URI NOS; HYPERTENSION NOS; BONE & CARTILAGE DIS NEC Social History Tobacco Use Types Packs/Day Years Used Date Smoking Tobacco: Never Assessed Comments Unknown Sex and Gender Information Value Date Recorded Sex Assigned at Not on file 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
--- OUTSIDE RECORDS SUMMARY | 2024-10-27 12:44 | XMS_ITS | Encounter Summary ---
Author Organization [facility] Address [address] [place] [address] Care Team Providers Care Metal Fabricator Apprentice Name Role Phone Unavailable Primary Care Provider Unavailabl e Encounter Details Date Type Department Care Team (Latest Contact Info) Description 06/15/1998 Outpatient Historical [facility] Medicine [address] [phone] Abiel Barajas MD [address] [place] [address] Supervision of other normal (Primary Dx) Social History Tobacco Use Types Packs/Day Years Used Date Smoking Tobacco: Never Assessed Comments Unknown Sex and Gender Information Value Date Recorded Sex Assigned at Not on file 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
--- OUTSIDE RECORDS SUMMARY | 2024-10-27 12:44 | XMS_ITS | Encounter Summary ---
Author Organization [facility] Address [address] [place] [address] Care Team Providers Care Shovel Operator Name Role Phone Unavailable Primary Care Provider Unavailabl e Encounter Details Date Type Department Care Team (Latest Contact Info) Description 05/12/1998 Outpatient Historical [facility] Medicine [address] [phone] Abiel Barajas MD [address] [place] [address] Supervision of other normal (Primary Dx) Social History Tobacco Use Types Packs/Day Years Used Date Smoking Tobacco: Never Assessed Comments Unknown Sex and Gender Information Value Date Recorded Sex Assigned at Not on file 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
--- OUTSIDE RECORDS SUMMARY | 2024-10-27 12:44 | XMS_ITS | Clinical Summary ---
Author Organization [facility] Address [address] [place] [address] Care Team Providers Care Intraoperative Neuro Tech Name Role Phone Unavailable Primary Care Provider Unavailabl e Medications raNITIdine (ZANTAC) 300 mg tablet Take 300 mg by mouth daily at bedtime. Active metOLazone (ZAROXOLYN) 5 mg tablet Take 5 mg by mouth daily. Active potassium chloride (KLOR-CON) 10 mEq Extended Release tablet Take 10 mEq by mouth. Active FLUoxetine (PROzac) 10 mg tablet Take 10 mg by mouth daily. Active FLUoxetine (PROzac) 40 mg capsule Take 40 mg by mouth daily. Active hydrOXYzine pamoate (VISTARIL) 25 mg capsule Take 25 mg by mouth 3 times daily as needed for Itching. Active metoprolol tartrate (LOPRESSOR) 25 mg tablet Take 25 mg by mouth 2 times daily. Active montelukast (SINGULAIR) 10 mg tablet Take 10 mg by mouth daily at bedtime. 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
--- OUTSIDE RECORDS SUMMARY | 2024-10-27 12:44 | XMS_ITS | Encounter Summary ---
Author Organization [facility] Address [address] [place] [address] Care Team Providers Care Project Intern Name Role Phone Unavailable Primary Care Provider Unavailabl e Encounter Details Date Type Department Care Team (Latest Contact Info) Description 06/02/1998 Outpatient Historical [facility] Medicine [address] [phone] Jovany Ross MD [address] [address] Supervision of other normal (Primary Dx) Social History Tobacco Use Types Packs/Day Years Used Date Smoking Tobacco: Never Assessed Comments Unknown Sex and Gender Information Value Date Recorded Sex Assigned at Not on file 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
--- OUTSIDE RECORDS SUMMARY | 2024-10-27 12:44 | XMS_ITS | Encounter Summary ---
Author Organization [facility] Address [address] [place] [address] Care Team Providers Care Forensic Engineer Name Role Phone Unavailable Primary Care Provider Unavailabl e Encounter Details Date Type Department Care Team (Latest Contact Info) Description 01/03/1999 Outpatient Historical [facility] Medicine [address] [address] Jovany Ross MD [address] [address] Cervicalgia (Primary Dx) Social History Tobacco Use Types Packs/Day Years Used Date Smoking Tobacco: Never Assessed Comments Unknown Sex and Gender Information Value Date Recorded Sex Assigned at Not on file Legal Sex Female 5:26 AM MANAGER OF CASE MANAGEMENT Gender Identity Not on file Sexual Orientation Not on file documented as of this encounter Plan of Treatment Not on file documented as of this encounter Visit Diagnoses Diagnosis Cervicalgia- Primary documented in this encounter
--- OUTSIDE RECORDS SUMMARY | 2024-10-27 12:44 | XMS_ITS | Encounter Summary ---
Author Organization [facility] Address [address] [place] [address] Care Team Providers Care Sales Manager [place] Name Role Phone Unavailable Primary Care Provider Unavailabl e Encounter Details Date Type Department Care Team (Latest Contact Info) Description 08/09/1998 Outpatient Historical [facility] Medicine [address], [place] [phone] Jovany Ross MD [address], [place] [address] Supervision of other normal (Primary Dx); Urinary tract infection, site not specified Social History Tobacco Use Types Packs/Day Years Used Date Smoking Tobacco: Never Assessed Comments Unknown Sex and Gender Information Value Date Recorded Sex Assigned at Not on file Legal Sex Female 5:26 AM MANAGER PE Gender Identity Not on file Sexual Orientation Not on file documented as of this encounter Plan of Treatment Not on file documented as of this encounter Visit Diagnoses Diagnosis Supervision of other normal - Primary Urinary tract infection, site not specified documented in this encounter
--- OUTSIDE RECORDS SUMMARY | 2024-10-27 12:44 | XMS_ITS | Encounter Summary ---
Author Organization [facility] Address [address] [place] [address] Care Team Providers Care Content Curator Name Role Phone Unavailable Primary Care Provider Unavailabl e Encounter Details Date Type Department Care Team (Latest Contact Info) Description 06/18/1998 Outpatient Historical [facility] Medicine [address] [phone] Ai Carreon MD [address] [place] [address] Supervision of other normal (Primary Dx); Abdominal pain, right lower quadrant Social History Tobacco Use Types Packs/Day Years Used Date Smoking Tobacco: Never Assessed Comments Unknown Sex and Gender Information Value Date Recorded Sex Assigned at Not on file 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
--- OUTSIDE RECORDS SUMMARY | 2024-10-27 12:44 | XMS_ITS | Encounter Summary ---
Author Organization [facility] Address [address] [place] [address] Care Team Providers Care Pals Nurse Name Role Phone Unavailable Primary Care Provider Unavailabl e Encounter Details Date Type Department Care Team (Latest Contact Info) Description 08/25/1998 Outpatient Historical [facility] Medicine [address] [phone] Abiel Barajas MD [address] [place] [address] Supervision of other normal (Primary Dx) Social History Tobacco Use Types Packs/Day Years Used Date Smoking Tobacco: Never Assessed Comments Unknown Sex and Gender Information Value Date Recorded Sex Assigned at Not on file 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
--- OUTSIDE RECORDS SUMMARY | 2024-10-27 12:44 | XMS_ITS | Encounter Summary ---
Author Organization [facility] Address [address] [place] [address] Care Team Providers Care Rink Rat Name Role Phone Unavailable Primary Care Provider Unavailabl e Encounter Details Date Type Department Care Team (Latest Contact Info) Description 07/01/1998 Outpatient Historical [facility] Medicine [address] [phone] Ai Carreon MD [address] [place] [address] Supervision of other normal (Primary Dx) Social History Tobacco Use Types Packs/Day Years Used Date Smoking Tobacco: Never Assessed Comments Unknown Sex and Gender Information Value Date Recorded Sex Assigned at Not on file 

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
--- OUTSIDE RECORDS SUMMARY | 2024-10-27 12:44 | XMS_ITS | Encounter Summary ---
Author Organization [facility] Address [address] [place] [address] Care Team Providers Care Bulb Weeder Name Role Phone Unavailable Primary Care Provider Unavailabl e Encounter Details Date Type Department Care Team (Latest Contact Info) Description 10/05/1998 Outpatient Historical [facility] Medicine [address] [address] Ai Carreon MD [address] [place] [address] Other general counseling and advice for contraceptive management (Primary Dx); Surveillance of other previously prescribed contraceptive method; care and examination immediately after delivery Social History Tobacco Use Types Packs/Day Years Used Date Smoking Tobacco: Never Assessed Comments Unknown Sex and Gender Information Value Date Recorded Sex Assigned at Not on file 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
--- OUTSIDE RECORDS SUMMARY | 2024-10-27 12:44 | XMS_ITS | Encounter Summary ---
Author Organization [facility] Address [address] [place] [address] Care Team Providers Care Plant Operator Control Room Operator Name Role Phone Unavailable Primary Care Provider Unavailabl e Encounter Details Date Type Department Care Team (Latest Contact Info) Description 11/05/1998 Outpatient Historical [facility] Medicine [address], [place] [address] Ai Carreon MD [address] [place] [phone] Gynecologic examination (Primary Dx) Social History Tobacco Use Types Packs/Day Years Used Date Smoking Tobacco: Never Assessed Comments Unknown Sex and Gender Information Value Date Recorded Sex Assigned at Not on file 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
[2024-10-27 13:39] LABS: Hematocrit 42.0 % (36-47); Hemoglobin 14.00 g/dL (11.27-16.99); Mean Corpuscular HGB Conc 33.3 g/dL (30-55); Mean Corpuscular Hemoglobin 29.5 pg (27-33); Mean Corpuscular Volume 88.6 fl (85-98); Nucleated Red Blood Cells % 0 %; Platelet Count 349 10^3/cmm (157-399); Red Blood Count 4.74 10^6/uL (3.85-5.65); White Blood Count 8.85 10^3/uL (3.29-11.43)
[2024-10-27 13:49] LABS: Glucose Urine UA Negative (Normal); Nitrate Urine Negative (Negative); Specific Gravity, Urine 1.015 (1.005-1.030)
[2024-10-27 13:52] LABS: Add Urine Microscopic? YES
[2024-10-27 13:59] LABS: Aspartate Amino Transferase 15 U/L (0-32); Blood Urea Nitrogen 10 mg/dL (6-20); Calcium 9.6 mg/dL (8.5-10.5); Creatinine Clr Calc Pharmacy 198.8458; Glucose 88 mg/dL (65-115); Lipase 20 U/L (13-60); Total Protein 7.8 g/dL (6.6-8.7)
[2024-10-27 14:09] LABS: Alanine Aminotransferase 18 U/L (0-33); Albumin Level 4.4 g/dL (3.5-5.2); Alkaline Phosphatase 95 U/L (35-105); Anion Gap 21.0 (5-19); Carbon Dioxide 20 mmol/L (22-29); Chloride 98 mmol/L (98-107); Globulin 3.4 g/dL (1.3-4.6); Osmolality Calculated 279 mOsm/kg (285-295); Potassium 4.0 mmol/L (3.5-5.1); Sodium 135 mmol/L (136-145)
--- NOTE | 2024-10-27 14:15 | W.ED.ABDPA2 ---
HPI - Abdominal Pain General: Chief Complaint: Abdominal Pain Stated Complaint: dr hiren abd pain Time Seen by Provider: 10/27/24 13:58 Source: patient Mode of arrival: ambulatory Limitations: no limitations History of Present Illness: 54-year-old female who presents to the ED today with right lower quadrant pain onset yesterday. She reports the pain was sharp and 10/10 yesterday and today it is more of a pressure feeling and rates it 6/10. She states her pain is worse when she is in a sitting position and is somewhat better when she is standing. Today she developed some fatigue and nausea but denies any fever. She saw her PCP this morning who was concerned for appendicitis and referred her to the ED. She has a history of cholecystectomy and multiple hernia repairs. Also has had a complete hysterectomy. No other complaints at this time. MD elicited complaint: abdominal pain Pertinent past history: none Onset (ago): day(s) (yesterday) Pain Consistency: constant Location: RLQ Severity: moderate Quality: stabbing and other (pressure) Radiation: none Migration to: no migration Exacerbating factors: other (sitting position) Relieving factors: other (standing) Associated Symptoms: Reports nausea and other (fatigue); Denies change in bowel habits, chills, dysuria, fever(s), hematochezia, melena and vomiting Related Data Home Medications ?Medication ?Instructions ?Recorded ?Confirmed iron-vit C-vit G30-[id number] acid 100 1 tab PO DAILY 01/12/21 10/27/24 mg-250 mg-25 mcg-1 mg tablet (Iron) meloxicam 15 mg tablet 15 mg PO DAILY 01/12/21 10/27/24 acetaminophen 500 mg tablet 1,000 mg PO QID PRN Fever Or Pain 10/27/24 10/27/24 (Tylenol Extra Strength) alpha lipoic acid 200 mg tablet 200 mg PO DAILY 10/27/24 10/27/24 coenzyme Q10 30 mg capsule 30 mg PO DAILY 10/27/24 10/27/24 duloxetine 60 mg capsule,delayed 120 mg PO DAILY 10/27/24 10/27/24 release magnesium gluconate 27 mg 27 mg PO BID 10/27/24 10/27/24 magnesium (500 mg) tablet metformin 500 mg tablet,extended 2,000 mg PO QPM 10/27/24 10/27/24 release 24 hr pioglitazone 30 mg tablet 30 mg PO DAILY 10/27/24 10/27/24 tirzepatide 15 mg/0.5 mL 15 mg SUBCUT Q7D 10/27/24 10/27/24 subcutaneous pen injector (Suzy) vitamin B complex 1 cap PO DAILY 10/27/24 10/27/24 Previous Rx's ?Medication ?Instructions ?Recorded chlorthalidone 50 mg tablet 50 mg PO DAILY 30 days #30 tabs 06/23/19 famotidine 40 mg tablet 40 mg PO BID 30 days #60 tabs 06/23/19 fluoxetine 20 mg capsule 20 mg PO DAILY 30 days #30 caps 06/23/19 metoprolol succinate 25 mg 25 mg PO DAILY 30 days #30 tabs 06/23/19 tablet,extended release 24 hr potassium chloride 10 mEq 10 meq PO BID 30 days #60 tabs 06/29/19 tablet,extended release (Klor-Con) buspirone 5 mg tablet 5 mg PO TID PRN anxiety 30 days 09/22/19 #90 tabs blood sugar diagnostic (Blood #100 ea 01/13/20 Glucose Test strips) albuterol sulfate 90 mcg/actuation 2 puff inhalation Q6H PRN 02/10/24 aerosol inhaler shortness of breath or wheezing #8.5 grams Allergies Allergy/AdvReac Type Severity Reaction Status Date / Time furosemide (From Lasix) Allergy Unknown Unknown Verified 02/10/24 09:09 lisinopril Allergy Unknown Unknown Verified 02/10/24 09:09 tramadol Allergy Unknown Unknown Verified 02/10/24 09:09 amoxicillin (From Augmentin) Allergy ADR-Nausea Verified 10/27/24 12:46 clavulanic acid (From Allergy ADR-Nausea Verified 10/27/24 12:46 Augmentin) Review of Systems Const: Denies: fever(s), chills, body aches, fatigue or malaise Card: Denies: chest pain Resp: Denies: dyspnea GI: Reports: abdominal pain, nausea and other (fatigue); Denies: vomiting, change in bowel habits, hematochezia or melena : Denies: flank pain, difficulty voiding, dysuria, urinary frequency, urinary urgency or urinary hesitancy Musc: Denies: neck pain, back pain, extremity pain, extremity swelling, joint pain, joint swelling or joint redness Skin/Breast: Denies: rash Neuro: Denies: headache(s), numbness in extremities, weakness in extremities, sensory changes or dizziness PFSH ED PFSH: Medical History Recurrent right knee instability Seasonal allergies Hypokalemia Irritable bowel syndrome Type 2 diabetes mellitus Nicotine dependence TOM (generalized anxiety disorder) Hydroxyzine make her sleepy. HTN (hypertension) GERD (gastroesophageal reflux disease) Depression Sleep apnea Hyperlipidemia CHF (congestive heart failure) Surgical History S/P hernia repair S/P knee replacement Total left knee replacement S/P carpal tunnel release Left S/P cholecystectomy S/P hysterectomy Family History Mother Diabetes Heart disease Family/Other Diabetes Maternal Uncle Heart disease Maternal Grandmother Social History Smoking and tobacco/nicotine status: former use of tobacco/nicotine Quit status (tobacco/nicotine): has quit using Second hand smoke exposure: Yes Alcohol intake: never Substance/Drug Use: never Female Reproductive History: Spontaneous abortions: No Physical Exam Const: COMMON NORMALS: no acute distress, average body habitus, patient oriented x3, no limitations, healthy appearing, alert and well nourished GENERAL APPEARANCE: cooperative NUTRITIONAL APPEARANCE: obese ORIENTATION/CONSCIOUSNESS: Yes awake, Yes oriented to person, Yes oriented to place and Yes oriented to time HENMT: COMMON NORMALS: normocephalic and atraumatic HEAD & SCALP: normal to inspection, normocephalic and atraumatic Eye: COMMON NORMALS: no scleral icterus Resp: COMMON NORMALS: normal respiratory effort and clear to auscultation bilaterally AUSCULTATION: clear to auscultation bilaterally Cardio: COMMON NORMALS: regular rate and regular rhythm RATE: regular rate RHYTHM: regular rhythm GI: COMMON NORMALS: Soft to palpation AUSCULTATION: Yes normoactive bowel sounds PALPATION: Yes Soft to palpation, Yes Tenderness to palpation present (GI) Details: RLQ, Yes Guarding due to palpation present (GI) and No Rigid due to palpation : COMMON NORMALS: Yes no CVA tenderness BLADDER/KIDNEY EXAM: Yes no CVA tenderness Back/Pelvis: COMMON NORMALS: no CVA tenderness, thoracic and lumbar spine normal to inspection and no thoracic nor lumbar tenderness Extremity: GENERAL: Yes normal exam except as noted Neuro: COMMON NORMALS: patient oriented x3, moves all extremities, no focal motor deficits and no sensory deficits noted SENSORIUM/ORIENTATION: Yes alert, Yes oriented to person, Yes oriented to place and Yes oriented to time Skin: COMMON NORMALS: no rashes or lesions noted GENERAL SKIN EXAM: no rashes or lesions noted Course Vital Signs: Vital signs: Vital Signs Temperature 97.8 F 10/27/24 12:42 Pulse Rate 78 10/27/24 16:00 Respiratory Rate 16 10/27/24 16:00 Blood Pressure 123/89 10/27/24 15:00 Pulse Oximetry 98 10/27/24 16:00 Oxygen Delivery Me thod Room Air 10/27/24 16:00 MDM - Abdominal Pain Medical Decision Making Patient clinically appears in no acute distress. Vital signs are stable. Blood work overall is unremarkable. Normal white count. UA is clear. CT scan showing no acute intra-abdominal or pelvic pathology. She will be allowed discharge with recommendations to follow-up with primary care later this week. Return to ED precautions discussed. Medical Records I reviewed the patient's medical records. Lab Data I reviewed the patient's lab results. 10/27/24 13:30 10/27/24 13:30 Labs/Radiology: Radiology Impressions Abdomen/Pelvis CT 10/27/24 14:[address]: [address] evidence of acute intra-abdominal or pelvic pathology. 2. Additional findings, as above. Laboratory Results WBC 8.85 10^3/uL (3.29-11.43) 10/27/24 13:30 RBC 4.74 10^6/uL (3.85-5.65) 10/27/24 13:30 Hgb 14.00 g/dL (11.27-16.99) 10/27/24 13:30 Hct 42.0 % (36-47) 10/27/24 13:30 MCV 88.6 fl (85-98) 10/27/24 13:30 MCH 29.5 pg (27-33) 10/27/24 13:30 MCHC 33.3 g/dL (30-55) 10/27/24 13:30 RDW 12.6 % (12.1-15.1) 10/27/24 13:30 Plt Count 349 10^3/cmm (157-399) 10/27/24 13:30 MPV 10.4 fL (7.4-10.4) 10/27/24 13:30 Neut % (Auto) 63.9 % 10/27/24 13:30 Lymph % (Auto) 27.3 % 10/27/24 13:30 Chase % (Auto) 6.9 % 10/27/24 13:30 Eos % (Auto) 1.1 % 10/27/24 13:30 Baso % (Auto) 0.6 % 10/27/24 13:30 Neut # (Auto) 5.65 10^3/uL (1.8-7.7) 10/27/24 13:30 Lymph # (Auto) 2.4 10^3/uL (0.8-4.8) 10/27/24 13:30 Chase # (Auto) 0.6 10^3/uL (0.2-0.9) 10/27/24 13:30 Eos # (Auto) 0.1 10^3/uL (0.0-0.8) 10/27/24 13:30 Baso # (Auto) 0.1 10^3/uL (0.0-0.1) 10/27/24 13:30 Nucleated RBC % (auto) 0 % 10/27/24 13:30 Nucleated RBCs # 0.0 /100WBC 10/27/24 13:30 Sodium 135 mmol/L (136-145) L 10/27/24 13:30 Potassium 4.0 mmol/L (3.5-5.1) 10/27/24 13:30 Chloride 98 mmol/L (98-107) 10/27/24 13:30 Carbon Dioxide 20 mmol/L (22-29) L 10/27/24 13:30 Anion Gap 21.0 (5-19) H 10/27/24 13:30 BUN 10 mg/dL (6-20) 10/27/24 13:30 Creatinine 0.5 mg/dL (0.5-0.9) 10/27/24 13:30 GFR Calculation 129.1 mL/min (90-130) 10/27/24 13:30 Glucose 88 mg/dL (65-115) 10/27/24 13:30 Calculated Osmolality 279 mOsm/kg (285-295) L 10/27/24 13:30 Calcium 9.6 mg/dL (8.5-10.5) 10/27/24 13:30 Total Bilirubin 0.9 mg/dL (0.15-1.2) 10/27/24 13:30 AST 15 U/L (0-32) 10/27/24 13:30 ALT 18 U/L (0-33) 10/27/24 13:30 Alkaline Phosphatase 95 U/L (35-105) 10/27/24 13:30 Total Protein 7.8 g/dL (6.6-8.7) 10/27/24 13:30 Albumin 4.4 g/dL (3.5-5.2) 10/27/24 13:30 Globulin 3.4 g/dL (1.3-4.6) 10/27/24 13:30 Lipase 20 U/L (13-60) 10/27/24 13:30 Urine Color Yellow (Yellow) 10/27/24 13:30 Urine Appearance Clear (CLEAR) 10/27/24 13:30 Urine pH 7.0 (5-7) 10/27/24 13:30 Ur Specific [place] 1.015 (1.005-1.030) 10/27/24 13:30 Urine Protein Negative (Negative) 10/27/24 13:30 Urine Glucose (UA) Negative (Normal) 10/27/24 13:30 Urine Ketones Negative (Negative) 10/27/24 13:30 Urine Blood Negative (Negative) 10/27/24 13:30 Urine Nitrate Negative (Negative) 10/27/24 13:30 Urine Bilirubin Negative (Negative) 10/27/24 13:30 Urine Urobilinogen 1.0 mg/dL (Negative) 10/27/24 13:30 Ur Leukocyte Esterase Negative (Negative) 10/27/24 13:30 Urine RBC 0-2 /hpf (0-2) 10/27/24 13:30 Urine WBC 0-5 /hpf (0-5) 10/27/24 13:30 Ur Squamous Epith Cells 0-5 /hpf (0-5) 10/27/24 13:30 Amorphous Sediment Not Reportable 10/27/24 13:30 Urine Bacteria None seen /hpf (NONE) 10/27/24 13:30 Hyaline Casts 0-4 /lpf H 10/27/24 13:30 All radiology interpretation(s) finalized by discharge Discharge Plan Discharge Patient Disposition: Home Clinical Impression: Acute right lower quadrant pain Condition: Stable Prescriptions: No Action chlorthalidone 50 mg tablet 50 mg PO DAILY 30 Days Qty: 30 5RF metoprolol succinate 25 mg tablet extended release 24 hr 25 mg PO DAILY 30 Days Qty: 30 5RF fluoxetine 20 mg capsule 20 mg PO DAILY 30 Days Qty: 30 5RF famotidine 40 mg tablet 40 mg PO BID 30 Days Qty: 60 5RF buspirone 5 mg tablet 5 mg PO TID PRN (Reason: anxiety) 30 Days Qty: 90 1RF meloxicam 15 mg tablet 15 mg PO DAILY Iron 100 Plus [id number] [id number]-[id number]-mg tablet 1 tab PO DAILY albuterol sulfate 90 mcg/actuation HFA aerosol inhaler 2 puff inhalation Q6H PRN (Reason: shortness of breath or wheezing) Qty: 8.5 2RF potassium chloride [Klor-Con 10] 10 mEq tablet extended release 10 meq PO BID 30 Days Qty: 60 2RF (DME) Blood Glucose Test Strip See Rx Instructions .ROUTE .MEDSUPPLY Qty: 100 12RF Rx Instructions: As directed; one blood glucose test strip one time daily duloxetine 60 mg capsule,delayed release(DR/EC) 120 mg PO DAILY alpha lipoic acid 200 mg Tablet 200 mg PO DAILY acetaminophen [Tylenol Extra Strength] 500 mg Tablet 1,000 mg PO QID PRN (Reason: Fever Or Pain) pioglitazone 30 mg tablet 30 mg PO DAILY metformin 500 mg tablet extended release 24 hr 2,000 mg PO QPM coenzyme Q10 [CoQ-10] 30 mg Capsule 30 mg PO DAILY vitamin B complex [B Complex] Capsule 1 cap PO DAILY magnesium gluconate 27 mg magnesium (500 mg) Tablet 27 mg PO BID Mounjaro 15 mg/0.5 mL pen injector 15 mg SUBCUT Q7D Discharge Orders: Discharge ED (Routine); Ordered 10/27/24 Ordered By: Ondina Pickett Referrals: Bradley Alex MD [Primary Care Provider] Patient Instructions: Abdominal Pain (ED), Patient Portal & Andrea Instructions Activity Restrictions/Additional Instructions: As we discussed, your blood work here was unremarkable. UA was clear. CT scan showing no acute abdominal findings. Your appendix appeared normal. Recommend he follow-up with your primary care provider later this week for reevaluation. You may return to the emergency department at anytime for worsening abdominal pain, vomiting, diarrhea, fevers, generally feeling worse or unwell, or any other concerns you may have. I hope you begin to feel better soon. Print Language: Burmese Coding Level of Care Code ED Alarm Signaler for Jim Freeman
--- NOTE | 2024-10-27 14:36 | CTR_ITS ---
PROCEDURE INFORMATION: Exam: CT Abdomen And Pelvis With Contrast Exam date and time: 10/27/2024 3:05 PM Age: 54 years old Clinical indication: Abdominal pain; Other: Rlq; Prior surgery; Surgery date: 6+ months; Surgery type: Gb, hyster, hernia x 3; Additional info: Rlq abdominal pain TECHNIQUE: Imaging protocol: Computed tomography of the abdomen and pelvis with contrast. Axial, coronal and sagittal reformatted images were created and reviewed. Radiation optimization: All CT scans at this facility use at least one of these dose optimization techniques: automated exposure control; mA and/or kV adjustment per patient size (includes targeted exams where dose is matched to clinical indication); or iterative reconstruction. Contrast material: OMNI 350; Contrast volume: 100 ml; Contrast route: INTRAVENOUS (IV); COMPARISON: MR lumbar spine wo con* [id number] 11/01/2022 7:55 AM RADIATION DOSE METRICS: Total DLP (mGy-cm): 1584.78 FINDINGS: Lungs: Linear stranding at the lung bases, consistent with atelectasis and/or scarring. Liver: Mild hepatomegaly. Gallbladder and biliary ducts: Status post cholecystectomy. No biliary ductal dilatation. Pancreas: Unremarkable. Spleen: Mild splenomegaly. Adrenal glands: Normal. No mass. Kidneys and ureters: No mass. No radiodense calculi. No hydronephrosis. Stomach and bowel: No bowel wall thickening. No obstruction. No pneumatosis. Appendix: Normal. Intraperitoneal space: No free fluid. No organized fluid collection. No free air. Vasculature: Mild atherosclerotic disease. No aneurysm or dissection. Lymph nodes: No pathologically enlarged lymph nodes. Urinary bladder: Unremarkable as visualized. Reproductive: Status post hysterectomy. Bones/joints: No acute osseous abnormality. Mild degenerative changes. Soft tissues: Unremarkable. CT/CT abdomen pelvis w con* [id number] IMPRESSION: 1. No CT evidence of acute intra-abdominal or pelvic pathology. 2. Additional findings, as above.
[2024-10-27 14:49] VITALS: BP 128/86; PULSE 79; RESP 16; O2SAT 99
[2024-10-27 15:00] VITALS: BP 123/89; PULSE 81; RESP 16; O2SAT 99
[2024-10-27] MEDS: iohexol 350 mg/mL 500 mL Btl (per mL) IV (15:09)
[2024-10-27] MEDS: ondansetron 2 mg/ML SDV 2 mL 4 MG IVP (15:25)
[2024-10-27 16:00] VITALS: PULSE 78; RESP 16; O2SAT 98
== END 2024-10-27 17:01 | disposition home or self-care (01) ==
PROVIDERS: Emergency Medicine; Emergency Provider Physician Assistant; PCP Family Medicine
DX: R10.31 Right lower quadrant pain (principal); Z79.84 Long term (current) use of oral hypoglycemic drugs; Z87.891 Personal history of nicotine dependence; E78.5 Hyperlipidemia, unspecified; I11.0 Hypertensive heart disease with heart failure; I50.9 Heart failure, unspecified; E11.9 Type 2 diabetes mellitus without complications
CPT/HCPCS: 36415; 74177; 80053; 81001; 83690; 85025; 96374; 96375; 99285; J1885; J2405

== ENCOUNTER → 2024-11-13 11:18 | Outpatient (BNVA) | payer MEDICARE, SELFPAY | PROVIDERS: PCP Family Medicine; Visit Provider Podiatrist Foot & Ankle Surgery | DX: M79.671 Pain in right foot (principal); L60.8 Other nail disorders; E11.9 Type 2 diabetes mellitus without complications; Z79.84 Long term (current) use of oral hypoglycemic drugs | CPT/HCPCS: 73630; 99214 ==

== ENCOUNTER → 2024-11-21 07:08 | Outpatient (BNVA) | payer MEDICARE, SELFPAY | PROVIDERS: PCP Family Medicine; Visit Provider Podiatrist Foot & Ankle Surgery | DX: L60.0 Ingrowing nail (principal); L60.8 Other nail disorders; E11.9 Type 2 diabetes mellitus without complications | CPT/HCPCS: 11730; 11750; 99214; A6219; J9999 ==